=== PATIENT | male | born 1985 | race Caucasian/White ===

== ENCOUNTER 2017-05-31 12:04 | Emergency (ER) | payer SELFPAY ==
[2017-05-31] MEDS ORDERED: Sodium Chloride 0.9% 1,000 ML IV ONE (12:18)
[2017-05-31] MEDS ORDERED: Sodium Chloride 0.9% 10 ML Syringe FLUSH PRN (12:18)
--- NOTE | 2017-05-31 12:28 | EDM.PDOC ---
ED HPI GENERAL MEDICAL PROBLEM - General Chief Complaint: Neuro Symptoms/Deficits Stated Complaint: L ARM NUMB/CHEST PAIN THIS AM/INCOHERENT Time Seen by Provider: 05/31/17 12:11 Source of Information: Reports: Patient History Limitations: Reports: No Limitations - History of Present Illness INITIAL COMMENTS - FREE TEXT/NARRATIVE: 32-year-old male presents for evaluation and treatment of chest pain and left arm numbness and weakness. Patient reports he woke at 8:30 this morning with chest pain. He also reports that his left arm felt numb and cold. States he did not present to the ER initially as he felt he was having a panic attack and he has had panic attacks in the past. Reports that he does not have any current chest pain. He states it felt like "a car was sitting on top of him ". He states that its worst it was a 10 out of 10. He denies any associated shortness of breath, neck pain, back pain or diaphoresis. He did feel nauseous earlier and vomited one time en route to the ER. No treatments prior to arrival. Patient also complains of left arm numbness and feeling cold. He states that he has decreased strength on the left side. He also states that he has now developed tingling in the left leg. No associated slurred speech or difficulty walking. Feels that he is incoherent. He is alert and orientated times self, date of , month and location. First he identifies the year as 1983 but then corrects himself and states that it is 2016. Identified the day as Tuesday (it is Tuesday today). Patient reports that he smokes 1-2 packs of cigarettes a day and has done so for the last 2 years. He reports he has a type II diabetic. Not currently on any medications. He does check his blood sugars and states they normally run in the 90s to 120s. He denies any alcohol use. He denies any illicit drug use. Patient reports that this has happened to him before. Reports that happened about 2 years ago. The ambulance was called but he refused transfer. Reports that his symptoms today were similar to previous symptoms. Reports that they resolved on their own over several days. He reports at that time he also had chest pain. Patient denies any history of any chest problems including any previous heart attacks or arrhythmias. is present reports that they have been under significant stress over the last 2 days. They do not have health insurance. Reportedly have a child who had a kidney transplant which failed and he is now receiving dialysis. They also have 2 young grandchildren living at home. 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 Onset: Today Onset Date: 05/31/17 Onset Time: 08:30 Location: Reports: Chest, Upper Extremity, Left - Related Data Allergies Allergy/AdvReac Type Severity Reaction Status Date / Time cefaclor [From Ceclor] Allergy Anaphylactic Verified 05/31/17 12:20 Shock Home Meds: Home Meds . [No Known Home Meds] 05/31/17 [History] ED ROS GENERAL - Review of Systems Review Of Systems: See Below Constitutional: Denies: Diaphoresis Respiratory: Denies: Shortness of Breath Cardiovascular: Reports: Chest Pain (earlier, none currently; describes it as a chest pressure "car sitting on chest" 04/12 pain) GI/Abdominal: Reports: Vomiting (x1 prior to arrival in the ER). Denies: Nausea Musculoskeletal: Reports: Arm Pain (left). Denies: Neck Pain Neurological: Reports: Numbness (left sided), Weakness (left arm). 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 No acute changes. Reviewed by myself and Dr. Jung. Course - Vital Signs Last Recorded V/S: Last Vital Signs Temp 36.7 C 05/31/17 13:30 Pulse 88 05/31/17 15:50 Resp 18 05/31/17 15:50 BP 129/90 05/31/17 15:50 Pulse Ox 98 05/31/17 15:50 - Orders/Labs/Meds Orders: Active Orders 24 hr Category Date Time Status Blood Glucose Check, Bedside [RC] ONETIME Care 05/31/17 12:24 Active EKG Documentation Completion [RC] ASDIRECTED Care 05/31/17 12:20 Active NIH Stroke Scale [RC] ASDIRECTED Care 05/31/17 12:19 Active Peripheral IV Care [RC] . DIRECTED Care 05/31/17 12:19 Active CULTURE BLOOD [BC] Stat Lab 05/31/17 12:58 Received CULTURE BLOOD [BC] Stat Lab 05/31/17 13:14 Received Blood Culture x2 Reflex Set [OM.PC] Stat Oth 05/31/17 12:18 Ordered Peripheral IV Insertion Adult [OM.PC] Routine Oth 05/31/17 12:18 Ordered EKG 12 Lead [EK] Stat Ther 05/31/17 12:20 Ordered Labs: Laboratory Tests 05/31/17 05/31/17 05/31/17 Range/Units 12:13 12:15 12:15 WBC 13.06 H (4.23-9.07) K/mm3 RBC 5.63 (4.63-6.08) M/mm3 Hgb 16.5 (13.7-17.5) gm/L Hct 48.5 (40.1-51.0) % MCV 86.1 (79.0-92.2) fl MCH 29.3 (25.7-32.2) pg MCHC 34.0 (32.2-35.5) g/dl RDW Std Deviation 40.3 (35.1-43.9) fL Plt Count 331 (163-337) K/mm3 MPV 10.5 (9.4-12.3) fl Neutrophils % (Manual) 67 H (40-60) % Band Neutrophils % 0 (0-10) % Lymphocytes % (Manual) 28 (20-40) % Atypical Lymphs % 0 % Monocytes % (Manual) 5 (2-10) % Eosinophils % (Manual) 0 L (0.8-7.0) % Basophils % (Manual) 0 L (0.2-1.2) Platelet Estimate Adequate RBC Morph Comment Normal PT 10.6 (8.0-13.0) SECONDS INR 0.97 APTT 29 (22-36) SECONDS Sodium (136-145) mEq/L Potassium (3.5-5.1) mEq/L Chloride (98-107) mEq/L Carbon Dioxide (21-32) mEq/L Anion Gap (5-15) BUN (7-18) mg/dL Creatinine (0.7-1.3) mg/dL Est Cr Clr Drug Dosing Estimated GFR (MDRD) (>60) mL/min BUN/Creatinine Ratio (14-18) Glucose (74-106) mg/dL POC Glucose 158 H (70-105) mg/dL Lactic Acid (0.4-2.0) mmol/L Calcium (8.5-10.1) mg/dL Total Bilirubin (0.2-1.0) mg/dL AST (15-37) U/L ALT (16-63) U/L Alkaline Phosphatase (46-116) U/L CK-MB (CK-2) (0-3.6) ng/ml Troponin I (0.00-0.056) ng/mL C-Reactive Protein (<1.0) mg/dL Total Protein (6.4-8.2) g/dl Albumin (3.4-5.0) g/dl Globulin gm/dL Albumin/Globulin Ratio (1-2) Urine Color (Yellow) Urine Appearance (Clear) Urine pH (5.0-8.0) Ur Specific [place] (1.005-1.030) Urine Protein (Negative) Urine Glucose (UA) (Negative) Urine Ketones (Negative) Urine Occult Blood (Negative) Urine Nitrite (Negative) Urine Bilirubin (Negative) Urine Urobilinogen (0.2-1.0) Ur Leukocyte Esterase (Negative) Urine RBC (0-5) /hpf Urine WBC (0-5) /hpf Ur Epithelial Cells (0-5) /hpf Urine Bacteria (FEW) /hpf Urine Mucus (FEW) /hpf Urine Opiates Screen (NEGATIVE) Ur Buprenorphine Scrn (NEGATIVE) Ur Oxycodone Screen (NEGATIVE) Urine Methadone Screen (NEGATIVE) Ur Propoxyphene Screen (NEGATIVE) Ur Barbiturates Screen (NEGATIVE) Ur Tricyclics Screen (NEGATIVE) Ur Phencyclidine Scrn (NEGATIVE) Ur Amphetamine Screen (NEGATIVE) U Methamphetamines Scrn (NEGATIVE) U Benzodiazepines Scrn (NEGATIVE) U Cocaine Metab Screen (NEGATIVE) U Marijuana (THC) Screen (NEGATIVE) Ethyl Alcohol (0.00) gm% 05/31/17 05/31/17 05/31/17 Range/Units 12:15 12:58 14:20 WBC (4.23-9.07) K/mm3 RBC (4.63-6.08) M/mm3 Hgb (13.7-17.5) gm/L Hct (40.1-51.0) % MCV (79.0-92.2) fl MCH (25.7-32.2) pg MCHC (32.2-35.5) g/dl RDW Std Deviation (35.1-43.9) fL Plt Count (163-337) K/mm3 MPV (9.4-12.3) fl Neutrophils % (Manual) (40-60) % Band Neutrophils % (0-10) % Lymphocytes % (Manual) (20-40) % Atypical Lymphs % % Monocytes % (Manual) (2-10) % Eosinophils % (Manual) (0.8-7.0) % Basophils % (Manual) (0.2-1.2) Platelet Estimate RBC Morph Comment PT (8.0-13.0) SECONDS INR APTT (22-36) SECONDS Sodium 139 (136-145) mEq/L Potassium 3.7 (3.5-5.1) mEq/L Chloride 102 (98-107) mEq/L Carbon Dioxide 29 (21-32) mEq/L Anion Gap 11.7 (5-15) BUN 21 H (7-18) mg/dL Creatinine 1.1 (0.7-1.3) mg/dL Est Cr Clr Drug Dosing TNP Estimated GFR (MDRD) > 60 (>60) mL/min BUN/Creatinine Ratio 19.1 H (14-18) Glucose 93 (74-106) mg/dL POC Glucose (70-105) mg/dL Lactic Acid 1.2 (0.4-2.0) mmol/L Calcium 9.2 (8.5-10.1) mg/dL Total Bilirubin 0.7 (0.2-1.0) mg/dL AST 22 (15-37) U/L ALT 26 (16-63) U/L Alkaline Phosphatase 71 (46-116) U/L CK-MB (CK-2) 3.5 (0-3.6) ng/ml Troponin I < 0.017 (0.00-0.056) ng/mL C-Reactive Protein < 0.2 (<1.0) mg/dL Total Protein 7.9 (6.4-8.2) g/dl Albumin 4.1 (3.4-5.0) g/dl Globulin 3.8 gm/dL Albumin/Globulin Ratio 1.1 (1-2) Urine Color (Yellow) Urine Appearance (Clear) Urine pH (5.0-8.0) Ur Specific [place] (1.005-1.030) Urine Protein (Negative) Urine Glucose (UA) (Negative) Urine Ketones (Negative) Urine Occult Blood (Negative) Urine Nitrite (Negative) Urine Bilirubin (Negative) Urine Urobilinogen (0.2-1.0) Ur Leukocyte Esterase (Negative) Urine RBC (0-5) /hpf Urine WBC (0-5) /hpf Ur Epithelial Cells (0-5) /hpf Urine Bacteria (FEW) /hpf Urine Mucus (FEW) /hpf Urine Opiates Screen Negative (NEGATIVE) Ur Buprenorphine Scrn Negative (NEGATIVE) Ur Oxycodone Screen Negative (NEGATIVE) Urine Methadone Screen Negative (NEGATIVE) Ur Propoxyphene Screen Negative (NEGATIVE) Ur Barbiturates Screen Negative (NEGATIVE) Ur Tricyclics Screen Negative (NEGATIVE) Ur Phencyclidine Scrn Negative (NEGATIVE) Ur Amphetamine Screen Presumptive positive H (NEGATIVE) U Methamphetamines Scrn Presumptive positive H (NEGATIVE) U Benzodiazepines Scrn Negative (NEGATIVE) U Cocaine Metab Screen Negative (NEGATIVE) U Marijuana (THC) Screen Presumptive positive H (NEGATIVE) Ethyl Alcohol 0.00 (0.00) gm% 05/31/17 Range/Units 14:20 WBC (4.23-9.07) K/mm3 RBC (4.63-6.08) M/mm3 Hgb (13.7-17.5) gm/L Hct (40.1-51.0) % MCV (79.0-92.2) fl MCH (25.7-32.2) pg MCHC (32.2-35.5) g/dl RDW Std Deviation (35.1-43.9) fL Plt Count (163-337) K/mm3 MPV (9.4-12.3) fl Neutrophils % (Manual) (40-60) % Band Neutrophils % (0-10) % Lymphocytes % (Manual) (20-40) % Atypical Lymphs % % Monocytes % (Manual) (2-10) % Eosinophils % (Manual) (0.8-7.0) % Basophils % (Manual) (0.2-1.2) Platelet Estimate RBC Morph Comment PT (8.0-13.0) SECONDS INR APTT (22-36) SECONDS Sodium (136-145) mEq/L Potassium (3.5-5.1) mEq/L Chloride (98-107) mEq/L Carbon Dioxide (21-32) mEq/L Anion Gap (5-15) BUN (7-18) mg/dL Creatinine (0.7-1.3) mg/dL Est Cr Clr Drug Dosing Estimated GFR (MDRD) (>60) mL/min BUN/Creatinine Ratio (14-18) Glucose (74-106) mg/dL POC Glucose (70-105) mg/dL Lactic Acid (0.4-2.0) mmol/L Calcium (8.5-10.1) mg/dL Total Bilirubin (0.2-1.0) mg/dL AST (15-37) U/L ALT (16-63) U/L Alkaline Phosphatase (46-116) U/L CK-MB (CK-2) (0-3.6) ng/ml Troponin I (0.00-0.056) ng/mL C-Reactive Protein (<1.0) mg/dL Total Protein (6.4-8.2) g/dl Albumin (3.4-5.0) g/dl Globulin gm/dL Albumin/Globulin Ratio (1-2) Urine Color Yellow (Yellow) Urine Appearance Slt cloudy H (Clear) Urine pH 6.0 (5.0-8.0) Ur Specific [place] > or = 1.030 (1.005-1.030) Urine Protein 1+ H (Negative) Urine Glucose (UA) Negative (Negative) Urine Ketones 1+ H (Negative) Urine Occult Blood Negative (Negative) Urine Nitrite Negative (Negative) Urine Bilirubin 1+ H (Negative) Urine Urobilinogen 1.0 (0.2-1.0) Ur Leukocyte Esterase Negative (Negative) Urine RBC 0-5 (0-5) /hpf Urine WBC 0-5 (0-5) /hpf Ur Epithelial Cells 0-5 (0-5) /hpf Urine Bacteria Rare (FEW) /hpf Urine Mucus Many H (FEW) /hpf Urine Opiates Screen (NEGATIVE) Ur Buprenorphine Scrn (NEGATIVE) Ur Oxycodone Screen (NEGATIVE) Urine Methadone Screen (NEGATIVE) Ur Propoxyphene Screen (NEGATIVE) Ur Barbiturates Screen (NEGATIVE) Ur Tricyclics Screen (NEGATIVE) Ur Phencyclidine Scrn (NEGATIVE) Ur Amphetamine Screen (NEGATIVE) U Methamphetamines Scrn (NEGATIVE) U Benzodiazepines Scrn (NEGATIVE) U Cocaine Metab Screen (NEGATIVE) U Marijuana (THC) Screen (NEGATIVE) Ethyl Alcohol (0.00) gm% Meds: Medications Discontinued Medications Generic Name Dose Route Start Last Admin Trade Name Freq PRN Reason Stop Dose Admin Sodium Chloride 1,000 mls @ 999 mls/hr 05/31/17 12:18 05/31/17 12:26 Normal Saline IV 05/31/17 13:18 999 mls/hr ONETIME ONE Administration Sodium Chloride 10 ml 05/31/17 12:18 05/31/17 12:26 Saline Flush FLUSH 10 ml ASDIRECTED PRN Administration Keep Vein Open - Radiology Interpretation Free Text/Narrative:: CT of the head without contrast impression per Dr. Armstrong: 1. No acute intracranial abnormality is identified. chest xray 1 view shows no no acute abnormality. CT Results Date: 05/31/17 - Re-Assessments/Exams Free Text/Narrative Re-Assessment/Exam: 05/31/17 14:54 I reviewed the labs, CT and ekg with the patient. Continues to complain of left arm numbness. Denies any headaches. Patient reassessed. 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 Questionable effort on the left. Dorsiflexion is 5 out of 5 in the right and 4 out of 5 on the left. Again questionable effort on the left side. Reports no chest pains during the ED. 05/31/17 15:[address] Jung. Will get an MRI to further evaluation. Went to inform patient of this. He is sleeping. 05/31/17 15:54 Patient went over for his MRI. He had an x-ray of the skull which did not show anything contraindicating MRI. Reportedly he told radiology staff that he is claustrophobic and does not want to have the MRI done. He was offered medication for his claustrophobia but he declined the MRI. His drug sceen has now returned. He is positive for amphetamines, methamphetamines and THC. Denied illicit drug use earlier. I discussed this with the patient. His is present states that she feels is likely stress and anxiety and feels he should be on something for stress anxiety. I educated them given that has not been honest with me and I feel like his symptoms are likely due to methamphetamine. I will not given anything for anxiety today. Given that he is refusing MRI I'm not sure what else I can offer him at this point. Discharge instructions as documented. Departure - Departure Time of Disposition: 15:56 Disposition: Home, Self-Care 01 Condition: Fair Clinical Impression: Methamphetamine abuse, Left arm numbness, Anxiety - Discharge Information Instructions: Stimulant Use Disorder-Methamphetamines Referrals: PCP,None [Primary Care Provider] - Forms: ED Department Discharge, ED Return to Work/School Form Additional Instructions: Recommend that you avoid using drugs and I'll call. These can be detrimental to her health. If you continue to have problems with anxiety and stress. Recommend following up with a family care provider. you may see a provider in [place]. If you're looking for recommendations and [place] recommend Dr. Woods. Please call [phone] schedule with him. Please return to the ER if your symptoms change or worsen. - My Orders Last 24 Hours: My Active Orders 05/31/17 12:18 Blood Culture x2 Reflex Set [OM.PC] Stat Peripheral IV Insertion Adult [OM.PC] Routine 05/31/17 12:19 NIH Stroke Scale [RC] ASDIRECTED Peripheral IV Care [RC] . DIRECTED 05/31/17 12:20 EKG Documentation Completion [RC] ASDIRECTED EKG 12 Lead [EK] Stat 05/31/17 12:24 Blood Glucose Check, Bedside [RC] ONETIME 05/31/17 12:58 CULTURE BLOOD [BC] Stat 05/31/17 13:14 CULTURE BLOOD [BC] Stat - Assessment/Plan Last 24 Hours: My Active Orders 05/31/17 12:18 Blood Culture x2 Reflex Set [OM.PC] Stat Peripheral IV Insertion Adult [OM.PC] Routine 05/31/17 12:19 NIH Stroke Scale [RC] ASDIRECTED Peripheral IV Care [RC] . DIRECTED 05/31/17 12:20 EKG Documentation Completion [RC] ASDIRECTED EKG 12 Lead [EK] Stat 05/31/17 12:24 Blood Glucose Check, Bedside [RC] ONETIME 05/31/17 12:58 CULTURE BLOOD [BC] Stat 05/31/17 13:14 CULTURE BLOOD [BC] Stat
--- NOTE | 2017-05-31 13:04 | CT ---
Head CT Technique: Multiple axial sections through the brain were obtained. Intravenous contrast was not utilized. Comparison: No prior intracranial imaging. Findings: Ventricles along with basal cisterns and sulci over the convexities appear within normal limits for the patient's age. No abnormal parenchymal densities are seen. No evidence of intracranial hemorrhage. No midline shift or mass effect is seen. Bone window settings were reviewed which show the visualized sinuses to appear clear. No acute calvarial abnormality is seen. Impression: 1. No acute intracranial abnormality is identified. Diagnostic code #1
--- NOTE | 2017-05-31 14:10 | CR ---
Chest: Portable view of the chest was obtained. Comparison: No previous study. Heart size and mediastinum are within normal limits. Lungs are clear. Bony structures appear within normal limits. Impression: 1. Nothing acute is identified on portable chest x-ray. Diagnostic code #1
--- NOTE | 2017-05-31 15:41 | CR ---
Skull: 2 views of the skull were obtained. Visualized sinuses are clear. Surrounding bony structures are unremarkable. No opaque foreign object is seen. Impression: 1. Nothing seen to contraindicate scheduled MRI. Diagnostic code #1
== END 2017-05-31 16:05 | disposition home or self-care (01) ==
LOC: JD.ED 12:04
DX: R20.0 Anesthesia of skin (principal); F41.9 Anxiety disorder, unspecified; F15.10 Other stimulant abuse, uncomplicated; Z88.1 Allergy status to other antibiotic agents
CPT/HCPCS: 36415; 70250; 70450; 71010; 80053; 80306; 81001; 82553; 82962; 83605; 84484; 85025; 85610; 85730; 86140; 87040; 93005; 96360; 99285; G0480; J7040; J7050; 99284-25